=== PATIENT | male | born 1980 | race Caucasian/White ===

== ENCOUNTER 2019-10-28 17:26 | Emergency (ER) | payer OTHER ==
[~2019-10-28] VITALS: Ht 185 cm; Wt 73.0 kg
[2019-10-28] MEDS ORDERED: CLINDAMYCIN 300 MG/2ML (CLEOCIN) VIAL IM SCH (18:15)
[2019-10-28] MEDS ORDERED: BUPIVACAINE 0.5% 30 ML (SENSORCAINE) VIAL INJ ONE (18:15)
[2019-10-28] MEDS ORDERED: RX-HYDROCODONE/APAP 5/325 MG #4 TAB PK PO PRN (18:15)
[2019-10-28] MEDS ORDERED: NAPR-1071 PO (18:27)
[2019-10-28] MEDS ORDERED: AMOX500C2 PO (18:27)
--- NOTE | 2019-10-28 18:28 | ED EENT ---
History of Present Illness General Chief Complaint: Dental Problems/Pain Stated Complaint: SWELLING IN FACE Nursing Triage Note: PT HAS SWELLING OF R SIDE OF FACE HAS BROKEN TOOTH ON R UPPER TOOTH, PT STATES STARTED YESTERDAY. 06/15 FOR PAIN Source: patient Exam Limitations: no limitations History of Present Illness Date Seen by Provider: Oct 28, 2019 Time Seen by Provider: 18:00 Initial Comments To ER with left-sided facial pain and began last night, it started to swell mildly then went down, upon awakening this morning with significantly more swell ing. Does not have a dentist. He has quite a bit of pain with this. Timing/Duration: abrupt Severity: moderate Location: dental Associated Symptoms: facial pain/swelling, tooth pain Allergies and Home Medications Allergies Coded Allergies: No Known Drug Allergies (Unverified , 10/28/19) Home Medications No Active Prescriptions or Reported Meds Patient Home Medication List Home Medication List Reviewed: Yes Review of Systems Review of Systems Constitutional: see HPI Eyes: No Symptoms Reported Ears: No Symptoms Reported Nose: no symptoms reported Mouth: see HPI, pain, swelling Throat: no symptoms reported Respiratory: no symptoms reported Cardiovascular: no symptoms reported Musculoskeletal: no symptoms reported Skin: no symptoms reported Neurological: No Symptoms Reported Hematologic/Lymphatic: No Symptoms Reported Immunological/Allergic: no symptoms reported Past Meypzmr-Wrxthw-Tmgkhp Hx Patient Social History Alcohol Use: Occasionally Uses Number of Drinks Today: 0 Recreational Drug Use: Yes (POT) Smoking Status: Current Everyday Smoker Type Used: Cigarettes Recent Foreign Travel: No Contact w/Someone Who Travel: No Recent Infectious Disease Expo: No Recent Hopitalizations: No Physical Abuse: No Sexual Abuse: No Seasonal Allergies Seasonal Allergies: Yes Past Medical History Surgeries: No Respiratory: No Cardiac: No Neurological: No Genitourinary: No Gastrointestinal: No Musculoskeletal: No Endocrine: No HEENT: No Cancer: No Integumentary: No Physical Exam Vital Signs Vital Signs - First Documented 10/28/19 17:53 Temp 37.5 Pulse 96 Resp 18 B/P (MAP) 145/96 (112) Pulse Ox 98 Height, Weight, BMI Height: '" Weight: lbs. oz. kg; 21.00 BMI Method: General Appearance: WD/WN, no apparent distress Eyes: bilateral eye normal inspection, bilateral eye PERRL, bilateral eye EOMI Ears: bilateral ear auricle normal, bilateral ear canal normal, bilateral ear TM normal Mouth/Throat: maxillary swelling (left-sided. There is no buccal swelling or fluctuance to suggest a drainable abscess. Multiple teeth are carious and eroded) Neck: non-tender, full range of motion Respiratory: no respiratory distress, no accessory muscle use Gastrointestinal: normal bowel sounds, non tender, soft Neurologic/Psychiatric: alert, normal mood/affect, oriented x 3 Skin: normal color, warm/dry Progress/Results/Core Measures Results/Orders My Orders Orders - ROSIE ELLIS APRN Clindamycin Injection (Cleocin Injection (10/28/19 18:15) Bupivacaine 0.5% Injection (Sensorcaine (10/28/19 18:15) Rx-Hydrocodone/Apap 5-325 Mg (Rx-Vicodin (10/28/19 18:15) Vital Signs/I&O 10/28/19 17:53 Temp 37.5 Pulse 96 Resp 18 B/P (MAP) 145/96 (112) Pulse Ox 98 Blood Pressure Mean: 112 Departure Communication (Admissions) 1820 approximately I injected 1.5 mL of 0.5 bupivacaine without epinephrine at the C6-C7 location paraspinous muscles bilaterally 2cm lateral to the spinous process using a 25-gauge needle parallel to the floor so as to avoid the lung apices. Subsequent reduction of facial pain. Impression Primary Impression: Odontogenic infection of jaw Disposition: HOME, SELF-CARE Condition: Stable Departure-Patient Inst. Decision time for Depature: 18:25 Referrals: NO,LOCAL PHYSICIAN (PCP) Primary Care Physician Patient Instructions: Dental Pain (DC), Tooth Abscess (DC) Add. Discharge Instructions: 1. Antibiotics as directed 2. Return to ER for any concerns 3. All discharge instructions reviewed with patient and/or family. Voiced understanding. Scripts Amoxicillin (Amoxicillin) 500 Mg Capsule 500 MG PO TID, #21 CAP 0 Refills Prov: ROSIE ELLIS APRN 10/28/19 Naproxen (Naprosyn) 500 Mg Tablet 500 MG PO BID, #30 TAB 0 Refills Prov: ROSIE ELLIS APRN 10/28/19 ROSIE ELLIS APRN Oct 28, 2019 18:28
[2019-10-28 18:37] VITALS: BP 145/96
== END 2019-10-28 18:37 | disposition home or self-care (01) ==
LOC: ER 17:28
DX: K04.7 Periapical abscess without sinus (principal); F17.210 Nicotine dependence, cigarettes, uncomplicated
CPT/HCPCS: 99284